=== PATIENT | male | born 1970 | race Two or more races ===

== ENCOUNTER 2024-03-01 06:59 | Emergency (ER) | payer OTHER ==
[~2024-03-01] VITALS: Ht 160 cm; Wt 69.4 kg
[2024-03-01] MEDS ORDERED: DEXAMETHASONE SODIUM PHOSPHATE 4 MG/ML VIAL IM STA (09:08)
[2024-03-01] MEDS ORDERED: CETIRIZINE HCL 5 MG/5 ML ML PO STA (09:08)
[2024-03-01] MEDS ORDERED: AYR SALINE50 ML NASAL (09:12)
[2024-03-01] MEDS ORDERED: FLONASE16 GM NASAL (09:12)
[2024-03-01] MEDS ORDERED: AMOX-CLAV 875-1 EAC1 PO (09:12)
== END 2024-03-01 09:24 | disposition home or self-care (01) ==
LOC: ER 07:01
DX: J01.90 Acute sinusitis, unspecified (principal); R05.9 Cough, unspecified; Z91.018 Allergy to other foods